=== PATIENT | male | born 1950 | race Caucasian/White ===

== ENCOUNTER 2018-07-28 12:13 | Emergency (ER) | payer MEDICARE, OTHER ==
[~2018-07-28] VITALS: Ht 177.8 cm; Wt 103.9 kg
[~2018-07-28 12:13] MED LIST: ALLEGRA ALLERG180 MG PO; ALTACE 1.25 M1.25 M1 PO; ALTACE10 M1 PO; AMOXICILLIN 50500 MG PO; CALCIUM + D SO1 EACH PO; CARVEDILOL25 MG PO; CARVEDILOL3.125 MG PO; K-DUR 20 MEQ T20 MEQ PO; LASIX 20 MG TAB20 MG PO; LASIX 40 MG TAB40 M1 PO; MULTI VITAMIN1 EACH PO; POTASSIUM20; ZOCOR 20 MG TAB20 M1 PO
[2018-07-28] MEDS ORDERED: CARVEDILOL12.5 MG PO (12:52)
[2018-07-28] MEDS ORDERED: ACETAMINOPHEN-1 EAC1 PO (13:25)
[2018-07-28 13:37] VITALS: BP 166/78
== END 2018-07-28 13:38 | disposition home or self-care (01) ==
LOC: M.ERS 12:13
DX: S01.81XA Laceration without foreign body of other part of head, initial encounter (principal); S16.1XXA Strain of muscle, fascia and tendon at neck level, initial encounter; I11.0 Hypertensive heart disease with heart failure; I50.9 Heart failure, unspecified; E78.5 Hyperlipidemia, unspecified; Z88.5 Allergy status to narcotic agent; Z96.651 Presence of right artificial knee joint; W00.0XXA Fall on same level due to ice and snow, initial encounter; Y93.89 Activity, other specified; Y92.89 Other specified places as the place of occurrence of the external cause; Y99.8 Other external cause status

== ENCOUNTER → 2019-11-29 | Day surgery (SDC) | payer MEDICARE, OTHER ==
[~2019-11-29] MED LIST changes: +ACETAMINOPHEN-1 EAC1 PO; +ALTACE2.5 MG PO; +CARVEDILOL12.5 MG PO; +ELIQUIS5 MG PO; +MEXILETINE 150150 MG PO; +PERCOCET PO; +SOTALOL 120 MG120 MG PO
[2019-11-29 06:33] LABS: HEMATOCRIT 38.4 % (42.0-52.0); HEMOGLOBIN 13.3 gm/dL (14.0-18.0); MCH 33.5 pg (26.0-34.0); MCHC 34.6 g/dL (28.0-37.0); MCV 96.8 fL (80.0-100.0); MPV 7.5 fl. (7.2-11.1); RBC 3.97 mil/uL (4.50-6.00); RDW-CV 13.3 % (10.5-14.5)
[2019-11-29 06:41] LABS: CALCIUM 8.4 mg/dL (8.5-10.1); CREATININE 0.9 mg/dL (0.6-1.3)
[2019-11-29 06:44] LABS: APTT 28.3 Seconds (25.0-31.3); INR 1.1; PROTIME 11.5 Seconds (9.20-11.50)
--- NOTE | 2019-11-29 15:29 | EKG ---
[place] [address] ELECTROCARDIOGRAM REPORT Name: RYAN SALAZAR Room: [facility]#: [id number] Admission: 11/29/19 Attend Phys: Tommy Marin Discharge: Date of : 48 Date of Service: 11/29/19 0632 Report #: [id number] THIS REPORT FOR: //name// [facility] Test Date: 2019-11-29 Test Time: 06:32:07 Pat Name: RYAN SALAZAR Department: Room: Gender: [employer]: CARLO : 1950 Requested By: Tommy Pang Order Number: [id number] Reading MD: Jovani Pradhan Measurements Intervals [place] Rate: 60 P: MD: 210 QRS: -22 QRSD: 183 T: 68 QT: 539 QTc: 539 Interpretive Statements Atrial-paced complexes Left bundle branch block Compared to ECG 11/26/2012 11:18:56 Sinus rhythm no longer present Left-axis deviation no longer present Electronically Signed On 11-29-2019 15:28:04 CDT by Jovani Pradhan [email or web address] <ELECTRONICALLY SIGNED> By: Jovani Pradhan MD, [facility] 11/29/19 1528 0632 0632 Jovain Pradhan MD, [facility] /EPI
--- NOTE | 2019-12-02 13:17 | OP ---
[facility] [address] [place] [address] OPERATIVE REPORT Name: RYAN SALAZAR Room: [facility]#: [id number] Admission: 11/29/19 Attend Phys: Tommy Pang Discharge: Date of : 48 Report #: [id number] THIS REPORT FOR: //name// cc: Jayce Correa Vincent R. DO ~ THIS REPORT FOR: //name// CC: Tommy Correa DATE OF SERVICE: 11/29/2019 PREOPERATIVE DIAGNOSIS: Right inguinal hernia. POSTOPERATIVE DIAGNOSIS: Right indirect inguinal hernia. OPERATION: Laparoscopic repair of right inguinal hernia with mesh. SURGEON: Tommy Pang MD ANESTHESIA: General. ESTIMATED BLOOD LOSS: Minimal. SPECIMEN: None. DESCRIPTION OF PROCEDURE: After informed consent was obtained, the patient was brought to the operating room and placed supine. SCDs were placed and working, preoperative antibiotics were administered, general anesthesia was induced. The abdomen was prepped and draped in the usual sterile fashion. The patient had voided prior to surgery. A 10 mm incision was made below the umbilicus. Fascia was incised and a trocar was placed. Pneumoperitoneum was established. Left-sided and right-sided 5 mm trocars were placed under direct vision. The patient was placed in the Trendelenburg position. The peritoneum at the right ASIS was scored. It was then incised medially and reflected inferiorly. The cord structures were identified and protected at all times. Jv's ligament was identified. He had a fairly large indirect hernia sac that was fully reduced as well as the cord lipoma. A large Bard 3DMax mesh was inserted. It was tacked to Jv's ligament with [address] [place] [address] OPERATIVE REPORT Name: RYAN SALAZAR Room: [facility]#: [id number] Admission: 11/29/19 Attend Phys: Tommy Pang Discharge: Date of : 48 Report #: [id number] absorbable tacks. I then reapproximated the peritoneum with the tacker as well. There was wide coverage of the mesh. The area was then instilled with 20 mL of 0.5% Marcaine solution. The ports were removed under direct vision. The fascia was closed with a [id number] 0 Vicryl. Skin was closed with 4-0 Monocryl. Incisions were sealed with Dermabond. COMPLICATIONS: None. DISPOSITION: The patient was taken to recovery in satisfactory condition. <ELECTRONICALLY SIGNED> By: Tommy Pang MD 12/02/19 1317 0913 0922Tommy Pang MD /nt
== END | disposition home or self-care (01) ==
LOC: M.SUR 06:03 → M.LAB 08:52
PROVIDERS: ATTEND Surgery
DX: K40.90 Unilateral inguinal hernia, without obstruction or gangrene, not specified as recurrent (principal); I11.0 Hypertensive heart disease with heart failure; I50.9 Heart failure, unspecified; E78.5 Hyperlipidemia, unspecified; Z98.890 Other specified postprocedural states; Z79.899 Other long term (current) drug therapy; Z79.01 Long term (current) use of anticoagulants; Z95.0 Presence of cardiac pacemaker; Z88.8 Allergy status to other drugs, medicaments and biological substances; Z11.59 Encounter for screening for other viral diseases

== ENCOUNTER → 2020-08-23 | Outpatient (CLI) | payer MEDICARE, OTHER | LOC: M.LAB 05:45 | PROVIDERS: ATTEND Anesthesiology | DX: E87.6 Hypokalemia (principal) ==